=== PATIENT | male | born 1950 | race Caucasian/White ===

== ENCOUNTER 2018-02-26 07:16 | Day surgery (SDC) | payer MEDICARE, OTHER ==
[~2018-02-26 07:16] MED LIST: Lactated Ringers 1,000 ML IV SCH
[2018-02-26] MEDS ORDERED: Propofol 200 MG/20 ML SDV ONE ×2 (07:47→08:45)
[2018-02-26] MEDS ORDERED: Midazolam 1 MG/ML 2 ML SDV ONE (07:47)
[2018-02-26] MEDS ORDERED: fentaNYL 100 MCG/2 ML SDV ONE (07:47)
[2018-02-26 09:34] VITALS: BP 121/75
--- NOTE | 2018-02-26 14:28 | OR ---
DATE OF PROCEDURE: 02/26/2018 PREOPERATIVE DIAGNOSIS: History of colon polyps. POSTOPERATIVE DIAGNOSES: Unremarkable colonoscopy, history of colon polyps. PROCEDURE: Colonoscopy to the cecum. ANESTHESIA: IV anesthesia with monitored anesthesia care. INDICATION: This 67-year-old white male is referred for a colonoscopy because of a history of colon polyps. His last colonoscopic exam was done 5 years ago. I counseled him for the procedure including risks and alternatives and he gave his informed consent to proceed. DESCRIPTION OF PROCEDURE: The patient was placed in the left lateral decubitus position. IV anesthesia was administered by the Anesthesia Service. Time-out was held. A rectal exam was performed which was unremarkable. The flexible video Olympus colonoscope was introduced through his anus, up his rectum, and out to his colon all the way to the cecum. Once the cecum was reached, the scope was slowly withdrawn examining the mucosa throughout. No mucosal abnormalities were noted. The scope was retroflexed in the rectum with the distal rectum appearing unremarkable. The scope was straightened and removed. He tolerated the procedure well. Bairon Mccarthy MD /[id number]
== END 2018-02-26 09:43 | disposition home or self-care (01) ==
LOC: JP.SDS 07:16
PROVIDERS: ATTEND Surgery
DX: Z12.11 Encounter for screening for malignant neoplasm of colon (principal); I10 Essential (primary) hypertension; J18.9 Pneumonia, unspecified organism; E78.00 Pure hypercholesterolemia, unspecified; Z86.010 Personal history of colon polyps
CPT/HCPCS: G0121; J2250; J2704; J3010; J7120

== ENCOUNTER 2018-05-13 19:03 | Emergency (ER) | payer MEDICARE, OTHER ==
[2018-05-13 19:22] VITALS: BP 146/82
--- NOTE | 2018-05-13 19:42 | EDM.PDOC ---
ED HPI GENERAL MEDICAL PROBLEM - General Chief Complaint: Chest Pain Stated Complaint: HEART ISSUES Time Seen by Provider: 05/13/18 19:09 Source of Information: Reports: Patient History Limitations: Reports: No Limitations - History of Present Illness INITIAL COMMENTS - FREE TEXT/NARRATIVE: Pt with left shoulder pain x 1 week, with radiating to elbow today. Also radiates to neck today. No known injury but golfs 5 times a week. Hx of heart attack 1992. Repeat stent in 2007. Compliant with meds. With nuclear stress testing 4 years ago. Weight stable. No alcohol. Does not smoke. No new stressors. Appetite good. Duration: Improving (none at time of exam with provider) Location: Reports: Upper Extremity, Left Quality: Reports: Dull Severity: Mild Improves with: Reports: Rest Worsens with: Reports: Movement Associated Symptoms: Reports: No Other Symptoms left arm Pain Score (Numeric/FACES): 3 - Related Data Allergies Allergy/AdvReac Type Severity Reaction Status Date / Time No Known Allergies Allergy Verified 05/13/18 19:09 Home Meds: Home Meds Aspirin [Adult Low Dose Aspirin EC] 81 mg PO DAILY 06/10/13 [History] Metoprolol Succinate [Toprol XL] 50 mg PO DAILY 06/10/13 [History] Triamterene/Hydrochlorothiazid [Dyazide 37.5-25] 0.5 tab PO DAILY 06/10/13 [ History] atorvaSTATin [Lipitor] 40 mg PO BEDTIME 06/10/13 [History] metFORMIN HCl [Metformin HCl] 500 mg PO BID 06/10/13 [History] Past Medical History HEENT History: Reports: Impaired Vision Cardiovascular History: Reports: CAD, High Cholesterol, Hypertension, ID, Stents Gastrointestinal History: Reports: Cholelithiasis, Colon Polyp Genitourinary History: Reports: Renal Calculus Musculoskeletal History: Reports: Fracture Endocrine/Metabolic History: Reports: Diabetes, Type II, Obesity/BMI 30+ - Infectious Disease History Infectious Disease History: Reports: Chicken Pox, Measles - Past Surgical History HEENT Surgical History: Reports: Tonsillectomy Cardiovascular Surgical History: Reports: Coronary Artery Stent GI Surgical History: Reports: Appendectomy, Cholecystectomy, Colonoscopy, Colostomy, Polypectomy Social & Family History - Tobacco Use Smoking Status *Q: Never Smoker - Caffeine Use Caffeine Use: Reports: Coffee - Recreational Drug Use Recreational Drug Use: No ED ROS GENERAL - Review of Systems Review Of Systems: See Below Constitutional: Reports: No Symptoms HEENT: Reports: No Symptoms Respiratory: Reports: No Symptoms Cardiovascular: Reports: No Symptoms Endocrine: Reports: No Symptoms GI/Abdominal: Reports: No Symptoms : Reports: No Symptoms Musculoskeletal: Reports: Shoulder Pain (left) Skin: Reports: No Symptoms Neurological: Reports: No Symptoms Psychiatric: Reports: No Symptoms Hematologic/Lymphatic: Reports: No Symptoms Immunologic: Reports: No Symptoms ED EXAM, GENERAL - Physical Exam Exam: See Below Exam Limited By: No Limitations General Appearance: Alert, WD/WN, No Apparent Distress Ears: Normal External Exam, Normal Canal, Hearing Grossly Normal, Normal TMs Nose: Normal Inspection, Normal Mucosa, No Blood Throat/Mouth: Normal Inspection, Normal Lips, Normal Teeth, Normal Gums, Normal Oropharynx, Normal Voice, No Airway Compromise Head: Atraumatic, Normocephalic Neck: Normal Inspection, Supple, Non-Tender, Full Range of Motion Respiratory/Chest: No Respiratory Distress, Lungs Clear, Normal Breath Sounds, No Accessory Muscle Use, Chest Non-Tender Cardiovascular: Normal Peripheral Pulses, Regular Rate, Rhythm, No Edema, No Gallop, No JVD, No Murmur, No Rub Back Exam: Normal Inspection, Full Range of Motion, NT Extremities: Normal Inspection, Normal Range of Motion, Non-Tender, No Pedal Edema, Normal Capillary Refill, Other (pain with left shoulder flexion and hyperextension. Strength intact.) Neurological: Alert, Oriented, CN II-XII Intact, Normal Cognition, Normal Gait, Normal Reflexes, No Motor/Sensory Deficits Psychiatric: Normal Affect, Normal Mood Skin Exam: Warm, Dry, Intact, Normal Color, No Rash Course - Vital Signs Last Recorded V/S: Last Vital Signs Temp 98.0 F 05/13/18 19:13 Pulse 68 05/13/18 19:13 Resp 17 05/13/18 19:13 BP 146/82 H 05/13/18 19:13 Pulse Ox 98 05/13/18 19:13 - Orders/Labs/Meds Orders: Active Orders 24 hr Category Date Time Status Cardiac Monitoring [RC] .As Directed Care 05/13/18 19:21 Active EKG Documentation Completion [RC] ASDIRECTED Care 05/13/18 19:20 Active GLYCOSYLATED HEMOGLOBIN,HGBA1C [CHEM] Stat Lab 09/02/18 20:16 Ordered EKG 12 Lead [EK] Routine Ther 05/13/18 19:20 Ordered Labs: Laboratory Tests 05/13/18 05/13/18 Range/Units 19:21 19:21 WBC 6.1 (4.5-11.0) K/uL RBC 4.77 (4.30-5.90) M/uL Hgb 14.9 (12.0-15.0) g/dL Hct 43.4 (40.0-54.0) % MCV 91 (80-98) fL MCH 31 (27-31) pg MCHC 34 (32-36) % Plt Count 170 (150-400) K/uL Neut % (Auto) 43 (36-66) % Lymph % (Auto) 38 (24-44) % [place] % (Auto) 15 H (2-6) % Eos % (Auto) 3 (2-4) % Baso % (Auto) 1 (0-1) % Sodium 136 L (140-148) mmol/L Potassium 4.3 (3.6-5.2) mmol/L Chloride 102 (100-108) mmol/L Carbon Dioxide 28 (21-32) mmol/L Anion Gap 10.3 (5.0-14.0) mmol/L BUN 17 (7-18) mg/dL Creatinine 1.1 (0.8-1.3) mg/dL Est Cr Clr Drug Dosing 77.89 mL/min Estimated GFR (MDRD) > 60 (>60) Glucose 241 H (74-106) mg/dL Calcium 8.8 (8.5-10.1) mg/dL Magnesium 1.8 (1.8-2.4) mg/dL Total Bilirubin 0.6 (0.2-1.0) mg/dL AST 14 L (15-37) U/L ALT 42 (12-78) U/L Alkaline Phosphatase 98 (46-116) U/L Creatine Kinase 132 (39-308) U/L CK-MB (CK-2) 3.0 (0-3.6) mg/mL Troponin I < 0.017 (0.000-0.056) ng/mL C-Reactive Protein 0.10 (0.0-0.3) mg/dL Total Protein 6.5 (6.4-8.2) g/dL Albumin 3.4 (3.4-5.0) g/dL Globulin 3.1 (2.3-3.5) g/dL Albumin/Globulin Ratio 1.1 L (1.2-2.2) Departure - Departure Time of Disposition: 20:26 Disposition: Home, Self-Care 01 Condition: Good Clinical Impression: Left shoulder pain Qualifiers: Chronicity: acute Qualified Code(s): M25.512 - Pain in left shoulder Instructions: Shoulder Pain Referrals: PCP,None [Primary Care Provider] - Forms: ED Department Discharge Additional Instructions: Labs WNL. EKG normal. Pt to consider physical therapy referral. To use Biofreeze to shoulder. Ice encouraged. Discussed likelihood of tendonitis due to repetition. Needs to avoid repeat activity x 7 days. - Problem List & Annotations (1) Left shoulder pain SNOMED Code(s): 52104610, 01874987 Code(s): M25.512 - PAIN IN LEFT SHOULDER Status: Acute Priority: Medium Current Visit: Yes Qualifiers: Chronicity: acute Qualified Code(s): M25.512 - Pain in left shoulder - My Orders Last 24 Hours: My Active Orders 05/13/18 19:20 EKG Documentation Completion [RC] ASDIRECTED EKG 12 Lead [EK] Routine 05/13/18 19:21 Cardiac Monitoring [RC] .As Directed 05/13/18 20:16 GLYCOSYLATED HEMOGLOBIN,HGBA1C [CHEM] Stat - Assessment/Plan Last 24 Hours: My Active Orders 05/13/18 19:20 EKG Documentation Completion [RC] ASDIRECTED EKG 12 Lead [EK] Routine 05/13/18 19:21 Cardiac Monitoring [RC] .As Directed 05/13/18 20:16 GLYCOSYLATED HEMOGLOBIN,HGBA1C [CHEM] Stat
== END 2018-05-13 20:50 | disposition home or self-care (01) ==
LOC: JP.ED 19:03
DX: M25.512 Pain in left shoulder (principal); I10 Essential (primary) hypertension; E11.9 Type 2 diabetes mellitus without complications; E66.9 Obesity, unspecified; Z79.82 Long term (current) use of aspirin; Z79.84 Long term (current) use of oral hypoglycemic drugs; Z79.899 Other long term (current) drug therapy
CPT/HCPCS: 36415; 80053; 82550; 82553; 83036; 83735; 84484; 85025; 86140; 93005; 99284-25

== ENCOUNTER 2021-02-04 18:41 | Emergency (ER) | payer MEDICARE, OTHER ==
[2021-02-04] MEDS ORDERED: Sodium Chloride 0.9% 10 ML Syringe FLUSH PRN (19:10)
--- NOTE | 2021-02-04 19:16 | EDM.PDOC ---
ED HPI GENERAL MEDICAL PROBLEM - General Chief Complaint: Cardiovascular Problem Stated Complaint: HIGH [place] Time Seen by Provider: 02/04/21 18:59 Source of Information: Reports: Patient History Limitations: Reports: No Limitations - History of Present Illness INITIAL COMMENTS - FREE TEXT/NARRATIVE: Héctor is a 70-year-old male presenting to the ED for evaluation of tachycardia. Patient states that his symptoms started about 1-1/2 hours ago. He has a history of paroxysmal atrial fibrillation and underwent a cardiac ablation while in [place] this winter in November 2020. He has had 1 other episode of paroxysmal atrial fibrillation for which he saw his senior validation engineer at [place], Dr. Henriquez who was going to perform a cardioversion, however, the patient converted on his own prior to that event which was scheduled as an outpatient. His symptoms are accompanied by fluttering in the chest but the patient denies any significant chest pain or pressure, shortness of breath, nausea, diaphoresis or lightheadedness. The patient is anticoagulated with Eliquis and takes sotalol and nifedipine. He also has a history significant for type 2 diabetes and hypertension. - Related Data Allergies Allergy/AdvReac Type Severity Reaction Status Date / Time No Known Allergies Allergy Verified 02/04/21 19:04 Home Meds: Home Meds atorvaSTATin [Lipitor] 40 mg PO BEDTIME 06/10/13 [History] metFORMIN HCl [Metformin HCl] 1,000 mg PO BID 06/10/13 [History] Apixaban [Eliquis] 5 mg PO BID 02/04/21 [History] NIFEdipine [Nifedipine ER] 30 mg PO DAILY 02/04/21 [History] Sotalol HCl [Sotalol] 80 mg PO BID 02/04/21 [History] lisinopriL [Lisinopril] 20 mg PO BID 02/04/21 [History] Past Medical History HEENT History: Reports: Impaired Vision Cardiovascular History: Reports: CAD, High Cholesterol, Hypertension, [place], Stents Gastrointestinal History: Reports: Cholelithiasis, Colon Polyp Genitourinary History: Reports: Renal Calculus Musculoskeletal History: Reports: Fracture Endocrine/Metabolic History: Reports: Diabetes, Type II, Obesity/BMI 30+ - Infectious Disease History Infectious Disease History: Reports: Chicken Pox, Measles - Past Surgical History HEENT Surgical History: Reports: Tonsillectomy Cardiovascular Surgical History: Reports: Coronary Artery Stent GI Surgical History: Reports: Appendectomy, Cholecystectomy, Colonoscopy, Colostomy, Polypectomy Social & Family History - Caffeine Use Caffeine Use: Reports: Coffee ED ROS GENERAL - Review of Systems Review Of Systems: See Below Constitutional: Reports: No Symptoms HEENT: Reports: No Symptoms Respiratory: Reports: No Symptoms Cardiovascular: Reports: Palpitations (Tachycardia) Endocrine: Reports: No Symptoms GI/Abdominal: Reports: No Symptoms : Reports: No Symptoms Musculoskeletal: Reports: No Symptoms Skin: Reports: No Symptoms Neurological: Reports: No Symptoms Psychiatric: Reports: No Symptoms Hematologic/Lymphatic: Reports: No Symptoms Immunologic: Reports: No Symptoms ED EXAM, GENERAL - Physical Exam Exam: See Below Exam Limited By: No Limitations General Appearance: Alert, No Apparent Distress Eye Exam: Bilateral Eye: EOMI, PERRL Throat/Mouth: Normal Inspection, Normal Oropharynx, Normal Voice, No Airway Compromise Head: Atraumatic, Normocephalic Neck: Normal Inspection, Supple, Non-Tender, Full Range of Motion Respiratory/Chest: No Respiratory Distress, Lungs Clear, Normal Breath Sounds Cardiovascular: Normal Peripheral Pulses, No Murmur, Tachycardia, Irregularly Irregular Peripheral Pulses: 2+: Radial (L), Radial (R), Posterior Tibial (L), Posterior Tibial (R) GI/Abdominal: Normal Bowel Sounds, Soft, Non-Tender Extremities: Normal Inspection, Normal Range of Motion, No Pedal Edema Neurological: Alert, Oriented, Normal Cognition, No Motor/Sensory Deficits Psychiatric: Normal Affect, Normal Mood Skin Exam: Warm, Dry, Intact, Normal Color Lymphatic: No Adenopathy #1 Interpretation EKG Date: 02/04/21 Time: 18:53 Rhythm: A-Fib Rate (Beats/Min): 160 [place]: Normal P-Wave: Absent QRS: Normal ST-T: Other (Repolarization abnormality) QT: Normal Comparison: Change From Previous EKG (Previous EKG dated 05/13/2018 shows normal sinus rhythm rate of 69 bpm.) #2 Interpretation EKG Date: 02/04/21 Time: 19:57 Rhythm: NSR Rate (Beats/Min): 71 [place]: Normal P-Wave: Present QRS: Normal ST-T: Normal QT: Normal Comparison: Change From Previous EKG (Normal sinus rhythm replaces atrial fibrillation.) Course - Vital Signs Last Recorded V/S: Last Vital Signs Temp 36.5 C 02/04/21 19:17 Pulse 160 H 02/04/21 19:30 Resp 19 02/04/21 19:30 BP 135/87 02/04/21 19:30 Pulse Ox 97 02/04/21 19:30 - Orders/Labs/Meds Orders: Active Orders 24 hr Category Date Time Status EKG Documentation Completion [RC] ASDIRECTED Care 02/04/21 19:10 Active EKG Documentation Completion [RC] ASDIRECTED Care 02/04/21 19:45 Active Magnesium Oxide Med 02/04/21 20:12 Once 800 mg PO ONETIME ONE Sodium Chloride 0.9% [Saline Flush] Med 02/04/21 19:10 Active 10 ml FLUSH ASDIRECTED PRN Saline Lock Insert [OM.PC] Routine Oth 02/04/21 19:10 Ordered EKG 12 Lead [EK] Routine Ther 02/04/21 19:10 Ordered EKG 12 Lead [EK] Routine Ther 02/04/21 19:44 Ordered Medication Orders Magnesium Oxide (Magnesium Oxide 400 Mg Tab) 800 mg PO ONETIME ONE Stop: 02/04/21 20:13 Sodium Chloride (Sodium Chloride 0.9% 10 Ml Syringe) 10 ml FLUSH ASDIRECTED PRN PRN Reason: Keep Vein Open Last Admin: 02/04/21 19:18 Dose: 10 ml Documented by: CHASE Labs: Laboratory Tests 02/04/21 02/04/21 Range/Units 19:05 19:05 WBC 8.0 (4.5-11.0) K/uL RBC 5.22 (4.30-5.90) M/uL Hgb 15.6 H (12.0-15.0) g/dL Hct 46.8 (40.0-54.0) % MCV 90 (80-98) fL MCH 30 (27-31) pg MCHC 33 (32-36) % Plt Count 214 (150-400) K/uL Neut % (Auto) 62.7 (36-66) % Lymph % (Auto) 26.1 (24-44) % [place] % (Auto) 9.7 H (2-6) % Eos % (Auto) 1.1 L (2-4) % Baso % (Auto) 0.4 (0-1) % Sodium 141 (140-148) mmol/L Potassium 4.2 (3.6-5.2) mmol/L Chloride 102 (100-108) mmol/L Carbon Dioxide 28 (21-32) mmol/L Anion Gap 11.3 (5.0-14.0) mmol/L BUN 12 (7-18) mg/dL Creatinine 0.9 (0.8-1.3) mg/dL Est Cr Clr Drug Dosing 91.28 mL/min Estimated GFR (MDRD) > 60 (>60) Glucose 120 H (74-106) mg/dL Calcium 8.9 (8.5-10.1) mg/dL Magnesium 1.6 L (1.8-2.4) mg/dL Total Bilirubin 0.8 (0.2-1.0) mg/dL AST 28 D (15-37) U/L ALT 48 (12-78) U/L Alkaline Phosphatase 95 (46-116) U/L Troponin I < 0.017 (0.000-0.056) ng/mL NT-Pro-B Natriuret Pep 568 H (5-125) pg/mL Total Protein 7.4 (6.4-8.2) g/dL Albumin 4.0 (3.4-5.0) g/dL Globulin 3.4 (2.3-3.5) g/dL Albumin/Globulin Ratio 1.2 (1.2-2.2) TSH, Ultra Sensitive 2.089 (0.358-3.740) uIU/mL Meds: Medications Generic Name Dose Route Start Last Admin Trade Name Freq PRN Reason Stop Dose Admin Magnesium Oxide 800 mg 02/04/21 20:12 Magnesium Oxide 400 Mg Tab PO 02/04/21 20:13 ONETIME ONE Sodium Chloride 10 ml 02/04/21 19:10 02/04/21 19:18 Sodium Chloride 0.9% 10 Ml Syringe FLUSH 10 ml ASDIRECTED PRN Administration Keep Vein Open - Re-Assessments/Exams Free Text/Narrative Re-Assessment/Exam: 02/04/21 20:13 labs were reviewed and show the patient has a normal CBC and comprehensive metabolic panel. His magnesium is slightly low at 1.6 so he was supplemented with mag oxide 800 mg by mouth. Patient has a mild elevation of his pro brain natruretic peptide at 549 likely due to his tachycardia. His troponin is negative. During the course of his stay, the patient converted spontaneously back to normal sinus rhythm with a rate of 71 bpm. At this time I believe the patient is suitable for discharge home in satisfactory condition. Indications to return to the ED were discussed. He should follow-up with his senior validation engineer as needed. Departure - Departure Time of Disposition: 20:15 Disposition: Home, Self-Care 01 Clinical Impression: Paroxysmal atrial fibrillation with rapid ventricular response, Hypomagnesemia, Mild congestive heart failure Instructions: Heart Failure, Self Care, [id number], Hypomagnesemia, Atrial Fibrillation, [id number] Referrals: PCP,None [Primary Care Provider] - Forms: ED Department Discharge Care Plan Goals: It appears that you have spontaneously reverted back to normal sinus rhythm. Your magnesium level is slightly low so we supplemented you with oral magnesium. At this time, the rest your blood work looks normal so we will let you go home. Please return to the ED should you redevelop atrial fibrillation. You may want a follow-up with your primary doctor or your senior validation engineer to let them know that she had another episode of paroxysmal atrial fibrillation. Make sure to take your nighttime medications as usual. It was a pleasure meeting and working with you today, we look forward to shocking you in the future. Sepsis Event Note (ED) - Focused Exam Vital Signs: Vital Signs Temp Pulse Resp BP Pulse Ox 02/04/21 19:30 160 H 19 135/87 97 02/04/21 19:17 36.5 C 160 H 21 H 146/92 H 98 02/04/21 18:59 36.5 C 160 H 21 H 146/92 H 98 - Problem List & Annotations (1) Hypomagnesemia SNOMED Code(s): 403797137 Code(s): E83.42 - HYPOMAGNESEMIA Status: Acute Priority: High Current Visit: Yes (2) Mild congestive heart failure SNOMED Code(s): 11752891 Code(s): I50.9 - HEART FAILURE, UNSPECIFIED Status: Acute Priority: Medium Current Visit: Yes (3) Paroxysmal atrial fibrillation with rapid ventricular response SNOMED Code(s): 4151496045 Code(s): I48.0 - PAROXYSMAL ATRIAL FIBRILLATION Status: Acute Priority: High Current Visit: Yes - Problem List Review Problem List Initiated/Reviewed/Updated: Yes - My Orders Last 24 Hours: My Active Orders 02/04/21 19:10 EKG Documentation Completion [RC] ASDIRECTED Sodium Chloride 0.9% [Saline Flush] 10 ml FLUSH ASDIRECTED PRN Saline Lock Insert [OM.PC] Routine EKG 12 Lead [EK] Routine 02/04/21 19:44 EKG 12 Lead [EK] Routine 02/04/21 19:45 EKG Documentation Completion [RC] ASDIRECTED 02/04/21 20:12 Magnesium Oxide 800 mg PO ONETIME ONE - Assessment/Plan Last 24 Hours: My Active Orders 02/04/21 19:10 EKG Documentation Completion [RC] ASDIRECTED Sodium Chloride 0.9% [Saline Flush] 10 ml FLUSH ASDIRECTED PRN Saline Lock Insert [OM.PC] Routine EKG 12 Lead [EK] Routine 02/04/21 19:44 EKG 12 Lead [EK] Routine 02/04/21 19:45 EKG Documentation Completion [RC] ASDIRECTED 02/04/21 20:12 Magnesium Oxide 800 mg PO ONETIME ONE
[2021-02-04] MEDS ORDERED: Magnesium Oxide 400 MG Tab PO ONE (20:12)
[2021-02-04 22:59] VITALS: BP 120/75; PULSE 66
== END 2021-02-04 20:33 | disposition home or self-care (01) ==
LOC: JP.ED 18:41
DX: I11.0 Hypertensive heart disease with heart failure (principal); I48.0 Paroxysmal atrial fibrillation; I50.9 Heart failure, unspecified; E83.42 Hypomagnesemia; I25.10 Atherosclerotic heart disease of native coronary artery without angina pectoris; E78.00 Pure hypercholesterolemia, unspecified; E11.9 Type 2 diabetes mellitus without complications; E66.9 Obesity, unspecified; Z79.899 Other long term (current) drug therapy; Z79.01 Long term (current) use of anticoagulants; Z68.33 Body mass index [BMI] 33.0-33.9, adult
CPT/HCPCS: 36415; 80053; 83735; 83880; 84443; 84484; 85025; 93005; 99285-25; A9270-GY

== ENCOUNTER 2023-03-20 08:21 | Day surgery (SDC) | payer MEDICARE, OTHER ==
[2023-03-20] MEDS ORDERED: fentaNYL 100 MCG/2 ML SDV ONE (08:31)
[2023-03-20] MEDS ORDERED: Propofol 200 MG/20 ML SDV ONE ×2 (08:31→10:00)
[2023-03-20] MEDS ORDERED: Lactated Ringers 1,000 ML IV SCH (09:00)
[2023-03-20 10:58] VITALS: BP 143/85; PULSE 46
== END 2023-03-20 11:12 | disposition home or self-care (01) ==
LOC: JP.SDS 08:21
PROVIDERS: ATTEND Student in an Organized Health Care Education/Training Program
DX: Z12.11 Encounter for screening for malignant neoplasm of colon (principal); D12.3 Benign neoplasm of transverse colon; G47.33 Obstructive sleep apnea (adult) (pediatric); I25.10 Atherosclerotic heart disease of native coronary artery without angina pectoris; I10 Essential (primary) hypertension; I25.2 Old myocardial infarction; E11.9 Type 2 diabetes mellitus without complications; E66.9 Obesity, unspecified
CPT/HCPCS: 45380; 45385; 93005; J2704; J3010; J7120

== ENCOUNTER 2023-06-04 18:32 | Emergency (ER) | payer MEDICARE, OTHER ==
[2023-06-04 18:47] LABS: BASOPHILS ABSOLUTE AUTO 0.11 K/uL (0.00-0.10); BASOPHILS PERCENT AUTO 0.7 % (0.1-1.3); EOSINOPHILS ABSOLUTE AUTO 0.14 K/uL (0.00-0.40); EOSINOPHILS PERCENT AUTO 0.9 % (0.0-5.4); HEMATOCRIT 48.3 % (38.4-49.7); HEMOGLOBIN 16.7 g/dL (12.9-16.9); IMMATURE GRAN ABSOLUTE AUTO 0.22 K/uL (0.00-0.23); IMMATURE GRAN PERCENT AUTO 1.4 % (0.0-0.7); LYMPHOCYTES ABSOLUTE AUTO 4.21 K/uL (0.8-3.3); LYMPHOCYTES PERCENT AUTO 26.5 % (11.4-47.7); MEAN CORPUSCULAR HEMOGLOBIN 31.6 pg (31.6-35.5); MEAN CORPUSCULAR HGB CONC 34.6 g/dL (31.6-35.5); MEAN CORPUSCULAR VOLUME 91.3 fL (81.4-99.0); MONOCYTES ABSOLUTE AUTO 1.65 K/uL (0.20-0.90); MONOCYTES PERCENT AUTO 10.4 % (3.3-12.6); NEUTROPHILS ABSOLUTE AUTO 9.58 K/uL (1.0-7.6); NEUTROPHILS PERCENT AUTO 60.1 % (40.0-78.1); PLATELET COUNT,PLT 237 K/uL (130-375); RED BLOOD CELL COUNT 5.29 M/uL (4.14-5.76); WHITE BLOOD CELL COUNT,WBC 15.9 K/uL (3.2-11.0)
[2023-06-04] MEDS ORDERED: Diltiazem 25 MG/5 ML SDV IVPUSH ONE (18:53)
[2023-06-04] MEDS ORDERED: Diltiazem 25 MG/5 ML SDV ONE (18:53)
[2023-06-04] MEDS ORDERED: Sodium Chloride 0.9% 1,000 ML IV SCH (19:00)
[2023-06-04 19:18] LABS: A/G RATIO 1.1 (1.2-2.2); ALANINE AMINOTRANSFERASE,ALT 140 U/L (12-78); ALBUMIN 3.6 g/dL (3.4-5.0); ALKALINE PHOSPHATASE 100 U/L (46-116); ANION GAP 11.1 mmol/L (5.0-14.0); ASPARTATE AMNIOTRANSFERASE,AST 45 U/L (15-37); BILIRUBIN TOTAL 0.8 mg/dL (0.2-1.0); BLOOD UREA NITROGEN,BUN 27 mg/dL (7-18); CALCIUM 8.5 mg/dL (8.5-10.1); CARBON DIOXIDE,CO2 27 mmol/L (21-32); CHLORIDE,CL 100 mmol/L (100-108); CREATININE 1.3 mg/dL (0.8-1.3); EST CRCL DRUG DOSING (CG) 61.39 mL/min; ESTIMATED GFR 58 mL/min (>60); GLUCOSE RANDOM 239 mg/dL (74-106); POTASSIUM,K 4.1 mmol/L (3.6-5.2); PROTEIN TOTAL,TP 6.8 g/dL (6.4-8.2); SODIUM,NA 134 mmol/L (140-148); TSH ULTRASENSITIVE 2.626 uIU/mL (0.358-3.740)
[2023-06-04 19:20] LABS: C-REACTIVE PROTEIN < 0.05 mg/dL (0.0-0.3); TROPONIN I HIGH SENSITIVITY 89.3 pg/mL (<=60.3)
[2023-06-04] MEDS ORDERED: Magnesium Oxide 400 MG Tab PO ONE (19:39)
[2023-06-04 22:25] VITALS: BP 134/98; PULSE 95
== END 2023-06-04 22:41 | disposition home or self-care (01) ==
LOC: JP.ED 18:32
DX: I48.91 Unspecified atrial fibrillation (principal); I24.8 Other forms of acute ischemic heart disease; E83.42 Hypomagnesemia; I50.9 Heart failure, unspecified; I25.2 Old myocardial infarction; E66.9 Obesity, unspecified; E11.9 Type 2 diabetes mellitus without complications; I48.20 Chronic atrial fibrillation, unspecified; Z79.84 Long term (current) use of oral hypoglycemic drugs; Z79.899 Other long term (current) drug therapy
CPT/HCPCS: 36415; 71046; 80053; 83735; 83880; 84443; 84484; 85025; 86140; 93005; 96361; 96374; 99285; A9270; J3490; J7030; U0002

== ENCOUNTER 2023-06-05 18:41 | Emergency (ER) | payer MEDICARE, OTHER ==
[2023-06-05] MEDS ORDERED: Adenosine 6 MG/2 ML SDV IVPUSH ONE ×2 (18:57→20:07)
[2023-06-05] MEDS ORDERED: Adenosine 6 MG/2 ML SDV ONE (19:10)
[2023-06-05] MEDS ORDERED: Midazolam 1 MG/ML 2 ML SDV IVPUSH ONE (19:20)
[2023-06-05] MEDS ORDERED: fentaNYL 50 MCG/ML SDV IVPUSH ONE (19:20)
[2023-06-05 20:24] LABS: BASOPHILS ABSOLUTE AUTO 0.09 K/uL (0.00-0.10); BASOPHILS PERCENT AUTO 0.8 % (0.1-1.3); CALCIUM 8.6 mg/dL (8.5-10.1); CREATININE 1.1 mg/dL (0.8-1.3); EOSINOPHILS PERCENT AUTO 1.8 % (0.0-5.4); EST CRCL DRUG DOSING (CG) 72.55 mL/min; HEMATOCRIT 48.6 % (38.4-49.7); HEMOGLOBIN 17.1 g/dL (12.9-16.9); IMMATURE GRAN ABSOLUTE AUTO 0.22 K/uL (0.00-0.23); IMMATURE GRAN PERCENT AUTO 1.9 % (0.0-0.7); LYMPHOCYTES ABSOLUTE AUTO 3.19 K/uL (0.8-3.3); LYMPHOCYTES PERCENT AUTO 28.3 % (11.4-47.7); MEAN CORPUSCULAR HEMOGLOBIN 31.8 pg (31.6-35.5); MEAN CORPUSCULAR HGB CONC 35.2 g/dL (31.6-35.5); MEAN CORPUSCULAR VOLUME 90.5 fL (81.4-99.0); MONOCYTES ABSOLUTE AUTO 1.05 K/uL (0.20-0.90); MONOCYTES PERCENT AUTO 9.3 % (3.3-12.6); NEUTROPHILS ABSOLUTE AUTO 6.54 K/uL (1.0-7.6); NEUTROPHILS PERCENT AUTO 57.9 % (40.0-78.1); PLATELET COUNT,PLT 258 K/uL (130-375); RED BLOOD CELL COUNT 5.37 M/uL (4.14-5.76); WHITE BLOOD CELL COUNT,WBC 11.3 K/uL (3.2-11.0)
[2023-06-05 20:26] LABS: TROPONIN I HIGH SENSITIVITY 62.4 pg/mL (<=60.3)
[2023-06-05 22:00] VITALS: BP 117/79; PULSE 79
== END 2023-06-05 22:03 | disposition home or self-care (01) ==
LOC: JP.ED 18:41
DX: I47.1 Supraventricular tachycardia (principal); I48.91 Unspecified atrial fibrillation; E78.00 Pure hypercholesterolemia, unspecified; I25.2 Old myocardial infarction; I10 Essential (primary) hypertension; I25.10 Atherosclerotic heart disease of native coronary artery without angina pectoris; E66.9 Obesity, unspecified; Z68.30 Body mass index [BMI] 30.0-30.9, adult; Z79.01 Long term (current) use of anticoagulants; Z79.84 Long term (current) use of oral hypoglycemic drugs; Z79.899 Other long term (current) drug therapy; Z95.5 Presence of coronary angioplasty implant and graft
CPT/HCPCS: 36415; 80048; 84484; 85025; 92960; 93005; 96374; 99285; J0153; J2250; J3010

== ENCOUNTER 2024-06-10 06:32 | Emergency (ER) | payer MEDICARE, OTHER ==
[2024-06-10 07:36] LABS: BASOPHILS ABSOLUTE AUTO 0.05 K/uL (0.00-0.10); BASOPHILS PERCENT AUTO 0.7 % (0.1-1.3); EOSINOPHILS ABSOLUTE AUTO 0.13 K/uL (0.00-0.40); EOSINOPHILS PERCENT AUTO 1.8 % (0.0-5.4); HEMATOCRIT 43.1 % (38.4-49.7); HEMOGLOBIN 15.7 g/dL (12.9-16.9); IMMATURE GRAN PERCENT AUTO 0.3 % (0.0-0.7); LYMPHOCYTES ABSOLUTE AUTO 1.83 K/uL (0.8-3.3); LYMPHOCYTES PERCENT AUTO 24.9 % (11.4-47.7); MEAN CORPUSCULAR HEMOGLOBIN 32.2 pg (31.6-35.5); MEAN CORPUSCULAR HGB CONC 36.4 g/dL (31.6-35.5); MEAN CORPUSCULAR VOLUME 88.3 fL (81.4-99.0); MONOCYTES ABSOLUTE AUTO 0.83 K/uL (0.20-0.90); MONOCYTES PERCENT AUTO 11.3 % (3.3-12.6); NEUTROPHILS ABSOLUTE AUTO 4.49 K/uL (1.0-7.6); PLATELET COUNT,PLT 177 K/uL (130-375); RED BLOOD CELL COUNT 4.88 M/uL (4.14-5.76); WHITE BLOOD CELL COUNT,WBC 7.4 K/uL (3.2-11.0)
[2024-06-10 07:39] LABS: IMMATURE GRAN ABSOLUTE AUTO 0.02 K/uL (0.00-0.23)
[2024-06-10 08:01] LABS: A/G RATIO 1.1 (1.2-2.2); ALANINE AMINOTRANSFERASE,ALT 28 U/L (12-78); ALBUMIN 3.7 g/dL (3.4-5.0); ALKALINE PHOSPHATASE 103 U/L (46-116); ANION GAP 12.1 mmol/L (5.0-14.0); ASPARTATE AMNIOTRANSFERASE,AST 14 U/L (15-37); BILIRUBIN TOTAL 0.7 mg/dL (0.2-1.0); BLOOD UREA NITROGEN,BUN 11 mg/dL (7-18); CALCIUM 9.1 mg/dL (8.5-10.1); CARBON DIOXIDE,CO2 24 mmol/L (21-32); CHLORIDE,CL 104 mmol/L (100-108); EST CRCL DRUG DOSING (CG) 78.63 mL/min; ESTIMATED GFR 79 mL/min (>60); GLUCOSE RANDOM 179 mg/dL (74-106); MAGNESIUM 1.7 mg/dL (1.8-2.4); PROTEIN TOTAL,TP 7.2 g/dL (6.4-8.2); SODIUM,NA 140 mmol/L (140-148)
[2024-06-10] MEDS: Magnesium Oxide 400 MG Tab PO ONE (08:28)
[2024-06-10] MEDS ORDERED: Propofol 200 MG/20 ML SDV ONE (08:46)
[2024-06-10] MEDS: Sotalol 80 MG Tab PO SCH (09:02)
[2024-06-10 09:41] VITALS: PULSE 55
[2024-06-10 09:42] VITALS: BP 131/81
== END 2024-06-10 09:42 | disposition home or self-care (01) ==
LOC: JP.ED 06:32
DX: I48.91 Unspecified atrial fibrillation (principal); I10 Essential (primary) hypertension; E78.00 Pure hypercholesterolemia, unspecified; E66.9 Obesity, unspecified; E11.9 Type 2 diabetes mellitus without complications; Z79.84 Long term (current) use of oral hypoglycemic drugs; Z79.899 Other long term (current) drug therapy; Z90.49 Acquired absence of other specified parts of digestive tract; Z87.891 Personal history of nicotine dependence; Z68.34 Body mass index [BMI] 34.0-34.9, adult
CPT/HCPCS: 36415; 80053; 83735; 84484; 85025; 92960; 93010; 99156; 99284; 99285; A9270; J2704